=== PATIENT | female | born 1935 | race Caucasian/White ===

== ENCOUNTER 2020-06-09 16:16 | Observation (INO) | payer MEDICARE, BC ==
[~2020-06-09] VITALS: Ht 165.1 cm; Wt 49.0 kg
[2020-06-11] MEDS ORDERED: SYNTHROID25 MCG PO (00:39)
[2020-06-11] MEDS ORDERED: INDERAL TAB 2020 MG PO (00:39)
[2020-06-11] MEDS ORDERED: ASPIRIN81 MG PO (00:39)
[2020-06-11] MEDS ORDERED: PRINIVIL20 MG PO (00:40)
[2020-06-11] MEDS ORDERED: PROTONIX 40 MG40 M1 PO (00:40)
[2020-06-11] MEDS ORDERED: FELODIPINE ER5 MG PO (00:40)
[2020-06-11] MEDS ORDERED: VALIUM 5 MG TAB5 MG PO (00:40)
[2020-06-11] MEDS ORDERED: CATAPRES 0.1MG0.1 MG PO (00:42)
[2020-06-11] MEDS ORDERED: CENTRUM SILVER1 EAC4 PO (00:42)
[2020-06-11] MEDS ORDERED: VITAMIN E PO (00:43)
[2020-06-11] MEDS ORDERED: CITRACAL + D M1 EACH PO (00:44)
[2020-06-11] MEDS ORDERED: BIOTIN PO (00:45)
[2020-06-12 06:16] LABS: HEMOGLOBIN 12.4 gm/dl (12.3-15.3); RED BLOOD COUNT 4.21 M/UL (4.00-5.10); WHITE BLOOD COUNT 3.4 K/UL (4.5-11.0)
[2020-06-13 05:59] LABS: HEMOGLOBIN 14.2 gm/dl (12.3-15.3); RED BLOOD COUNT 4.73 M/UL (4.00-5.10); WHITE BLOOD COUNT 4.6 K/UL (4.5-11.0)
== END 2020-06-13 20:00 | disposition home or self-care (01) ==
LOC: MED SURG 4 06-11 00:03
PROVIDERS: Internal Medicine; Physician Assistant; ADMIT Internal Medicine
DX: R07.89 Other chest pain (principal); I10 Essential (primary) hypertension; I45.10 Unspecified right bundle-branch block; E87.1 Hypo-osmolality and hyponatremia; E03.9 Hypothyroidism, unspecified; J44.9 Chronic obstructive pulmonary disease, unspecified; E11.9 Type 2 diabetes mellitus without complications; F41.9 Anxiety disorder, unspecified; I25.10 Atherosclerotic heart disease of native coronary artery without angina pectoris; E87.6 Hypokalemia; Z20.822 Contact with and (suspected) exposure to COVID-19; Z79.899 Other long term (current) drug therapy; Z79.82 Long term (current) use of aspirin; Z79.890 Hormone replacement therapy; Z87.891 Personal history of nicotine dependence; Z98.890 Other specified postprocedural states; Z90.89 Acquired absence of other organs; Z90.49 Acquired absence of other specified parts of digestive tract; Z87.09 Personal history of other diseases of the respiratory system; Z90.2 Acquired absence of lung [part of]; Z88.0 Allergy status to penicillin; Z88.2 Allergy status to sulfonamides; Z88.4 Allergy status to anesthetic agent
CPT/HCPCS: 36415; 78452; 80048; 82550; 82553; 82962; 84484; 85025; 86140; 87635; 93005; 96372; 97162; 97166; 97530; A9502; G0378; G0379; J1650; J2785